=== PATIENT | male | born 1980 | race African-American/Black ===

== ENCOUNTER 2022-07-18 09:34 | Emergency (ER) | payer MEDICAID ==
[2022-07-18 10:02] VITALS: BP 113/71
[2022-07-18 10:56] LABS: URINE BILIRUBIN - DIPSTICK NEGATIVE (NEGATIVE); URINE BLOOD DIPSTICK NEGATIVE (NEGATIVE); URINE COLOR YELLOW; URINE GLUCOSE - DIPSTICK NEGATIVE (NEGATIVE); URINE KETONE 15 mg/dL (NEGATIVE); URINE LEUK ESTERASE NEGATIVE (NEGATIVE); URINE PROTEIN - DIPSTICK NEGATIVE (NEG-TRACE); URINE SPECIFIC GRAVITY 1.025; URINE UROBILINOGEN - DIPSTICK 0.2 E.U./dL (0.2)
[2022-07-18 11:04] LABS: URINE NITRITE - DIPSTICK NEGATIVE (Negative)
[2022-07-18] MEDS ORDERED: CYCLOBENZAPRINE10 MG PO (12:59)
[2022-07-18] MEDS ORDERED: NAPROXEN500 MG PO (12:59)
== END 2022-07-18 13:22 | disposition home or self-care (01) ==
LOC: ED 09:34
PROVIDERS: Emergency Medicine
DX: S33.5XXA Sprain of ligaments of lumbar spine, initial encounter (principal); X58.XXXA Exposure to other specified factors, initial encounter